=== PATIENT | female | born 1945 | race Caucasian/White ===

== ENCOUNTER 2017-09-03 13:44 | Inpatient (IN) | payer MEDICARE ==
[~2017-09-03] VITALS: Ht 160 cm; Wt 85.0 kg
[2017-09-03 14:06] LABS: BASOPHILS % (AUTO) 0.3 % (0-1); EOSINOPHILS # (AUTO) 0.2 X10'3 (0-0.9); HEMATOCRIT 42.7 % (35.0-45.0); HEMOGLOBIN 14.1 g/dl (12.0-16.0); LYMPHOCYTES # (AUTO) 1.8 X10'3 (1.1-4.8); LYMPHOCYTES % (AUTO) 21.1 % (21-51); MEAN CORPUSCULAR HEMOGLOBIN 29.2 PG (27.0-31.0); MEAN CORPUSCULAR HGB CONC 33.1 % (33.0-36.5); MEAN CORPUSCULAR VOLUME 88.3 FL (78-98); MEAN PLATELET VOLUME 6.9 FL (7.4-10.4); MONOCYTES # (AUTO) 0.6 X10'3 (0-0.9); MONOCYTES % (AUTO) 7.5 % (2-12); NEUTROPHILS # (AUTO) 5.8 X10'3 (1.8-7.7); NEUTROPHILS % (AUTO) 69.1 % (42-75); PLATELET COUNT 315 X10'3 (140-440); RED BLOOD COUNT 4.83 X10'6 (4.20-5.60); RED CELL DISTRIBUTION WIDTH 14.9 % (11.5-14.5); WHITE BLOOD COUNT 8.4 X10'3 (4.5-11.0)
[2017-09-03 14:15] LABS: PARTIAL THROMBOPLASTIN TIME 25 SECONDS (22-32)
[2017-09-03 14:19] LABS: ALANINE AMINOTRANSFERASE 92 U/L (12-78); ALBUMIN 3.8 G/DL (3.4-5.0); ALBUMIN/GLOBULIN RATIO 1.1 (1.1-1.5); ALKALINE PHOSPHATASE 88 IU/L (46-116); ANION GAP 13 (8-16); ASPARTATE AMINO TRANSFERASE 41 U/L (10-37); BILIRUBIN,TOTAL 0.5 MG/DL (0.1-1.0); BLOOD UREA NITROGEN 22 MG/DL (7-18); BUN/CREATININE RATIO 18.2 (6.6-38.0); CALCIUM 9.4 MG/DL (8.5-10.1); CHLORIDE 101 MMOL/L (99-107); CREATININE 1.21 MG/DL (0.40-0.90); GLUCOSE 105 MG/DL (70-104); POTASSIUM 3.1 MMOL/L (3.5-5.1); SODIUM 140 MMOL/L (135-145); TOTAL CARBON DIOXIDE 26.5 MMOL/L (24-32); TOTAL PROTEIN 7.2 G/DL (6.4-8.2); eGFR 44 ML/MIN
[2017-09-03] MEDS ORDERED: aspirin 81mg tab.chew PO ONE (14:35)
[2017-09-03] MEDS ORDERED: enoxaparin 100mg/ml syringe SUBCUT ONE ×2 (14:35→14:45)
[2017-09-03] MEDS ORDERED: nitroGLYCERIN 0.4mg SUBLingual tab SL PRN (14:35)
[2017-09-03] MEDS: potassium 10mEq/100ml NS w/LIDOcaine (10mg/bag) IV SCH ×2 (15:14→16:43)
[2017-09-03] MEDS ORDERED: magnesium Cl slow-release 64mg tablet PO PRN (16:20)
[2017-09-03] MEDS ORDERED: magnesium 4gm in 100ml NS 100 ML IV PRN (16:20)
[2017-09-03] MEDS ORDERED: acetaminophen 325mg tablet PO PRN (16:20)
[2017-09-03] MEDS ORDERED: potassium Cl 20 mEq SR tablet PO PRN (16:20)
[2017-09-03] MEDS ORDERED: mag hydrox/Alum hydrox/simeth 30ml oral suspension PO PRN (16:20)
[2017-09-03] MEDS ORDERED: magnesium hydroxide 30ml (MOM) UD suspension PO PRN (16:20)
[2017-09-03] MEDS ORDERED: HYDROmorphone 1 mg/ml syringe IV PRN (16:20)
[2017-09-03] MEDS ORDERED: magnesium 2GM in 50ml NS 50 ML IV PRN (16:20)
[2017-09-03] MEDS ORDERED: potassium Cl 40MEQ/NS 500ml 500 ML IV PRN ×2 (16:20)
[2017-09-03] MEDS ORDERED: ondansetron/PF 4mg/2ml inj IV PRN (16:20)
[2017-09-03 19:50] VITALS: BP 106/52
[2017-09-03] MEDS ORDERED: enoxaparin 30mg/0.3ml syringe SUBCUT SCH (20:00)
[2017-09-03] MEDS ORDERED: enoxaparin 60mg/0.6ml syringe SUBCUT SCH (20:00)
[2017-09-03] MEDS ORDERED: enoxaparin 100mg/ml syringe SUBCUT SCH (20:00)
[2017-09-03] MEDS: metoprolol tartrate 12.5mg (1/2 tablet) PO SCH (21:38)
[2017-09-03 22:00] VITALS: BP 107/54
[2017-09-03] MEDS ORDERED: heparin 10,000 units/1 ML INJ IV PRN (22:30)
[2017-09-03] MEDS ORDERED: heparin 10,000 units/1 ML INJ IV ONE (22:30)
[2017-09-04] VITALS (12 sets, daily range): BP systolic 105–156; BP diastolic 55–65
[2017-09-04] MEDS ORDERED: glucagon, human recombinant 1mg kit SUBCUT PRN (00:45)
[2017-09-04] MEDS ORDERED: dextrose 50%-water 50ml dispensing syringe IV PRN ×2 (00:45)
[2017-09-04] MEDS ORDERED: MESSAGE TO PHARMACY PO ONE (00:45)
[2017-09-04] MEDS ORDERED: dextrose ORAL solution 15 GM/59 ML bottle PO PRN ×2 (00:45)
[2017-09-04 02:06] LABS: BASOPHILS % (AUTO) 0.4 % (0-1); EOSINOPHILS # (AUTO) 0.1 X10'3 (0-0.9); EOSINOPHILS % (AUTO) 1.6 % (0-6); HEMATOCRIT 36.8 % (35.0-45.0); HEMOGLOBIN 12.2 g/dl (12.0-16.0); LYMPHOCYTES # (AUTO) 1.9 X10'3 (1.1-4.8); LYMPHOCYTES % (AUTO) 25.1 % (21-51); MEAN CORPUSCULAR HEMOGLOBIN 29.1 PG (27.0-31.0); MEAN CORPUSCULAR HGB CONC 33.1 % (33.0-36.5); MEAN CORPUSCULAR VOLUME 87.8 FL (78-98); MONOCYTES # (AUTO) 0.6 X10'3 (0-0.9); MONOCYTES % (AUTO) 7.5 % (2-12); NEUTROPHILS # (AUTO) 4.9 X10'3 (1.8-7.7); NEUTROPHILS % (AUTO) 65.4 % (42-75); PLATELET COUNT 263 X10'3 (140-440); RED BLOOD COUNT 4.19 X10'6 (4.20-5.60); RED CELL DISTRIBUTION WIDTH 14.9 % (11.5-14.5); WHITE BLOOD COUNT 7.4 X10'3 (4.5-11.0)
[2017-09-04 02:23] LABS: ALBUMIN 3.2 G/DL (3.4-5.0); ANION GAP 8 (8-16); BLOOD UREA NITROGEN 22 MG/DL (7-18); BUN/CREATININE RATIO 22.4 (6.6-38.0); CALCIUM 8.9 MG/DL (8.5-10.1); CHLORIDE 106 MMOL/L (99-107); CREATININE 0.98 MG/DL (0.40-0.90); GLUCOSE 93 MG/DL (70-104); MAGNESIUM 1.8 MG/DL (1.5-2.4); POTASSIUM 3.2 MMOL/L (3.5-5.1); SODIUM 140 MMOL/L (135-145); TOTAL CARBON DIOXIDE 26.4 MMOL/L (24-32); eGFR 56 ML/MIN
[2017-09-04 02:27] LABS: HEMOGLOBIN A1C 7.5 % (4.5-6.2)
[2017-09-04] MEDS: potassium Cl 20 mEq SR tablet PO PRN ×4 (05:14→13:16)
[2017-09-04] MEDS: atorvastatin 20mg tablet PO SCH (08:00)
[2017-09-04] MEDS: K and/or MAG REPLACEMENT MC SCH (08:00)
[2017-09-04] MEDS: metoprolol tartrate 12.5mg (1/2 tablet) PO SCH ×2 (08:12→20:30)
[2017-09-04] MEDS ORDERED: aspirin 325mg tablet PO SCH (08:30)
[2017-09-04] MEDS ORDERED: OMEP20CA10 PO (13:04)
[2017-09-04] MEDS ORDERED: CANA300T PO (13:04)
[2017-09-04] MEDS ORDERED: LOSA1TAB36 PO (13:05)
[2017-09-04] MEDS ORDERED: AMLO5TAB4 PO (13:05)
[2017-09-04] MEDS ORDERED: GLYB5TAB7 PO (13:06)
[2017-09-04] MEDS ORDERED: METF500T PO (13:06)
[2017-09-04] MEDS ORDERED: METO25TA6 PO (13:08)
[2017-09-04] MEDS ORDERED: ROSU40TA PO (13:16)
[2017-09-04] MEDS ORDERED: LEVO75TA PO (13:16)
[2017-09-04] MEDS ORDERED: ASPI81TA30 PO (13:17)
[2017-09-04] MEDS ORDERED: normal saline 1000ml 1,000 ML IV SCH ×2 (15:10→21:55)
[2017-09-04] MEDS ORDERED: heparin 1,000unit/ml 10ml vial 10 ML ONE (16:30)
[2017-09-04] MEDS ORDERED: IOHEXOL 350 MG/ML 150 ML injection IV ONE (16:30)
[2017-09-04] MEDS ORDERED: iohexol 350 MG/ML 50ML vial IV ONE (16:30)
[2017-09-04] MEDS ORDERED: LIDOcaine 1%/PF (10mg/ml) 5ml vial ONE (16:30)
[2017-09-04] MEDS ORDERED: midazolam 2 mg/2 ml injection ONE ×2 (17:58→18:10)
[2017-09-04] MEDS ORDERED: fentaNYL/PF 50MCG/1 ML 2ML syringe ONE (18:08)
[2017-09-04] MEDS ORDERED: tirofiban 5mg in NS 100mL 100 ML IV ONE ×2 (18:18→21:06)
[2017-09-04] MEDS ORDERED: clopidogrel 300mg tablet ONE (19:20)
[2017-09-04] MEDS ORDERED: HYDROcodone/acetaminophen 5mg/325mg tablet PO PRN (19:55)
[2017-09-04] MEDS ORDERED: nitroGLYCERIN 0.4mg SUBLingual tab SL PRN (19:55)
[2017-09-04] MEDS ORDERED: OXAZEpam 15mg capsule PO PRN ×2 (19:55→21:45)
[2017-09-04] MEDS ORDERED: proCHLORperazine 10 MG/2 ml inj IV PRN ×2 (19:55→21:45)
[2017-09-04] MEDS: Insulin Detemir pen SQ SCH (21:00)
[2017-09-04] MEDS: tirofiban 5mg in NS 100mL 100 ML IV SCH (21:39)
[2017-09-04] MEDS ORDERED: nitroGLYCERIN-Tridil 50MG/D5W 250 ML IV PRN (21:45)
[2017-09-04] MEDS ORDERED: acetaminophen 325mg tablet PO PRN (21:45)
[2017-09-04] MEDS ORDERED: magnesium hydroxide 30ml (MOM) UD suspension PO PRN (21:45)
[2017-09-04] MEDS: normal saline 1000ml 1,000 ML IV SCH (22:20)
[2017-09-04] MEDS: cyclobenzaprine 10mg tablet PO PRN (23:35)
[2017-09-05] VITALS (24 sets, daily range): BP systolic 93–136; BP diastolic 38–62
[2017-09-05] MEDS: tirofiban 5mg in NS 100mL 100 ML IV SCH (02:30)
[2017-09-05 02:32] LABS: BASOPHILS % (AUTO) 0.2 % (0-1); EOSINOPHILS # (AUTO) 0.1 X10'3 (0-0.9); EOSINOPHILS % (AUTO) 1.6 % (0-6); HEMATOCRIT 35.6 % (35.0-45.0); HEMOGLOBIN 11.5 g/dl (12.0-16.0); LYMPHOCYTES # (AUTO) 1.3 X10'3 (1.1-4.8); MEAN CORPUSCULAR HGB CONC 32.3 % (33.0-36.5); MEAN CORPUSCULAR VOLUME 89.7 FL (78-98); MEAN PLATELET VOLUME 7.6 FL (7.4-10.4); MONOCYTES # (AUTO) 0.3 X10'3 (0-0.9); MONOCYTES % (AUTO) 4.1 % (2-12); NEUTROPHILS # (AUTO) 5.5 X10'3 (1.8-7.7); NEUTROPHILS % (AUTO) 76.1 % (42-75); PLATELET COUNT 258 X10'3 (140-440); RED BLOOD COUNT 3.97 X10'6 (4.20-5.60); RED CELL DISTRIBUTION WIDTH 15.1 % (11.5-14.5); WHITE BLOOD COUNT 7.2 X10'3 (4.5-11.0)
[2017-09-05 02:47] LABS: ALANINE AMINOTRANSFERASE 85 U/L (12-78); ALBUMIN/GLOBULIN RATIO 1.1 (1.1-1.5); ALKALINE PHOSPHATASE 62 IU/L (46-116); ANION GAP 3 (8-16); ASPARTATE AMINO TRANSFERASE 41 U/L (10-37); BILIRUBIN,TOTAL 0.3 MG/DL (0.1-1.0); BLOOD UREA NITROGEN 19 MG/DL (7-18); BUN/CREATININE RATIO 22.6 (6.6-38.0); CALCIUM 8.4 MG/DL (8.5-10.1); CHLORIDE 109 MMOL/L (99-107); CREATININE 0.84 MG/DL (0.40-0.90); GLUCOSE 203 MG/DL (70-104); MAGNESIUM 2.1 MG/DL (1.5-2.4); POTASSIUM 4.3 MMOL/L (3.5-5.1); SODIUM 142 MMOL/L (135-145); TOTAL CARBON DIOXIDE 30.2 MMOL/L (24-32); TOTAL PROTEIN 5.8 G/DL (6.4-8.2); eGFR 67 ML/MIN
[2017-09-05] MEDS: cyclobenzaprine 10mg tablet PO PRN (07:26)
[2017-09-05] MEDS: atorvastatin 20mg tablet PO SCH (07:43)
[2017-09-05] MEDS: levoTHYROXINE 75mcg tablet PO SCH (07:43)
[2017-09-05] MEDS: HYDROchlorothiazide 25mg tablet PO SCH (07:43)
[2017-09-05] MEDS: docusate sod 100mg capsule PO SCH ×2 (07:43→20:09)
[2017-09-05] MEDS: pantoprazole 40mg Tablet.DR PO SCH (07:43)
[2017-09-05] MEDS: aspirin 81mg tab.chew PO SCH (07:49)
[2017-09-05] MEDS: K and/or MAG REPLACEMENT MC SCH (08:00)
[2017-09-05] MEDS ORDERED: glimepiride 1 MG tablet PO SCH (08:00)
[2017-09-05] MEDS: amLODIPine 5mg tablet PO SCH (08:00)
[2017-09-05] MEDS ORDERED: non-formulary drug (Rosuvastatin Calcium* (Crestor*) 1 TAB) PO SCH (08:00)
[2017-09-05] MEDS ORDERED: losartan 50mg tablet PO SCH (08:00)
[2017-09-05] MEDS ORDERED: metoprolol tartrate 25mg tablet PO SCH (08:00)
[2017-09-05] MEDS ORDERED: non-formulary drug (Losartan/Hydrochlorothiazide (Losartan-Hctz 50-12.5 Mg Tab) 1 TAB) PO SCH (08:00)
[2017-09-05] MEDS ORDERED: clopidogrel 75mg tablet PO SCH (08:00)
[2017-09-05] MEDS: metoprolol tartrate 25mg tablet PO SCH (08:00)
[2017-09-05] MEDS: HYDROcodone/acetaminophen 10/325mg tab PO PRN ×2 (08:47→12:43)
[2017-09-05] MEDS: normal saline 1000ml 1,000 ML IV SCH (09:30)
[2017-09-05] MEDS ORDERED: LIDOcaine 1%/PF (10mg/ml) 5ml vial ONE (11:04)
[2017-09-05] MEDS: magnesium hydroxide 30ml (MOM) UD suspension PO SCH (20:10)
[2017-09-05] MEDS: Insulin Detemir pen SQ SCH (21:23)
[2017-09-06] VITALS (18 sets, daily range): BP systolic 105–140; BP diastolic 45–66
[2017-09-06 04:58] LABS: BASOPHILS % (AUTO) 0.3 % (0-1); EOSINOPHILS # (AUTO) 0.3 X10'3 (0-0.9); EOSINOPHILS % (AUTO) 3.2 % (0-6); HEMATOCRIT 35.9 % (35.0-45.0); HEMOGLOBIN 11.8 g/dl (12.0-16.0); LYMPHOCYTES # (AUTO) 1.5 X10'3 (1.1-4.8); LYMPHOCYTES % (AUTO) 17.6 % (21-51); MEAN CORPUSCULAR HEMOGLOBIN 29.3 PG (27.0-31.0); MEAN CORPUSCULAR VOLUME 88.9 FL (78-98); MEAN PLATELET VOLUME 7.1 FL (7.4-10.4); MONOCYTES # (AUTO) 0.5 X10'3 (0-0.9); MONOCYTES % (AUTO) 5.4 % (2-12); NEUTROPHILS # (AUTO) 6.4 X10'3 (1.8-7.7); NEUTROPHILS % (AUTO) 73.5 % (42-75); PLATELET COUNT 231 X10'3 (140-440); RED BLOOD COUNT 4.03 X10'6 (4.20-5.60); RED CELL DISTRIBUTION WIDTH 15.1 % (11.5-14.5); WHITE BLOOD COUNT 8.6 X10'3 (4.5-11.0)
[2017-09-06 05:18] LABS: ANION GAP 9 (8-16); BLOOD UREA NITROGEN 16 MG/DL (7-18); BUN/CREATININE RATIO 19.5 (6.6-38.0); CALCIUM 8.5 MG/DL (8.5-10.1); CHLORIDE 104 MMOL/L (99-107); CREATININE 0.82 MG/DL (0.40-0.90); GLUCOSE 129 MG/DL (70-104); MAGNESIUM 2.4 MG/DL (1.5-2.4); SODIUM 141 MMOL/L (135-145); TOTAL CARBON DIOXIDE 27.8 MMOL/L (24-32); eGFR 69 ML/MIN
[2017-09-06] MEDS: K and/or MAG REPLACEMENT MC SCH (07:00)
[2017-09-06] MEDS: levoTHYROXINE 75mcg tablet PO SCH (07:17)
[2017-09-06] MEDS: pantoprazole 40mg Tablet.DR PO SCH (07:17)
[2017-09-06] MEDS: docusate sod 100mg capsule PO SCH ×2 (08:51→19:03)
[2017-09-06] MEDS: HYDROchlorothiazide 25mg tablet PO SCH (08:51)
[2017-09-06] MEDS: atorvastatin 20mg tablet PO SCH (08:52)
[2017-09-06] MEDS: amLODIPine 5mg tablet PO SCH (08:52)
[2017-09-06] MEDS: metoprolol tartrate 25mg tablet PO SCH (08:52)
[2017-09-06] MEDS: clopidogrel 75mg tablet PO SCH (08:53)
[2017-09-06] MEDS: aspirin 81mg tab.chew PO SCH (08:53)
[2017-09-06] MEDS: insulin Lispro (HumaLOG) vial - multi-dose SQ SCH ×3 (09:30→18:45)
[2017-09-06] MEDS: metFORMIN 500mg tablet PO SCH (17:30)
[2017-09-06] MEDS: magnesium hydroxide 30ml (MOM) UD suspension PO SCH (19:04)
[2017-09-06] MEDS: Insulin Detemir pen SQ SCH (21:14)
[2017-09-07 02:00] VITALS: BP 132/66
[2017-09-07 05:10] VITALS: BP 139/69
[2017-09-07 05:40] LABS: BASOPHILS % (AUTO) 0.3 % (0-1); EOSINOPHILS # (AUTO) 0.3 X10'3 (0-0.9); EOSINOPHILS % (AUTO) 2.9 % (0-6); HEMATOCRIT 38.4 % (35.0-45.0); HEMOGLOBIN 12.7 g/dl (12.0-16.0); LYMPHOCYTES # (AUTO) 2.3 X10'3 (1.1-4.8); LYMPHOCYTES % (AUTO) 26.5 % (21-51); MEAN CORPUSCULAR HEMOGLOBIN 29.3 PG (27.0-31.0); MEAN CORPUSCULAR HGB CONC 33.1 % (33.0-36.5); MEAN CORPUSCULAR VOLUME 88.4 FL (78-98); MEAN PLATELET VOLUME 6.8 FL (7.4-10.4); MONOCYTES # (AUTO) 0.5 X10'3 (0-0.9); MONOCYTES % (AUTO) 5.3 % (2-12); NEUTROPHILS # (AUTO) 5.7 X10'3 (1.8-7.7); PLATELET COUNT 250 X10'3 (140-440); RED BLOOD COUNT 4.34 X10'6 (4.20-5.60); RED CELL DISTRIBUTION WIDTH 14.9 % (11.5-14.5); WHITE BLOOD COUNT 8.7 X10'3 (4.5-11.0)
[2017-09-07 06:27] LABS: ALBUMIN 3.3 G/DL (3.4-5.0); ANION GAP 9 (8-16); BLOOD UREA NITROGEN 18 MG/DL (7-18); BUN/CREATININE RATIO 18.6 (6.6-38.0); CALCIUM 9.6 MG/DL (8.5-10.1); CHLORIDE 105 MMOL/L (99-107); CREATININE 0.97 MG/DL (0.40-0.90); GLUCOSE 126 MG/DL (70-104); MAGNESIUM 2.6 MG/DL (1.5-2.4); POTASSIUM 4.2 MMOL/L (3.5-5.1); SODIUM 143 MMOL/L (135-145); TOTAL CARBON DIOXIDE 29.5 MMOL/L (24-32); eGFR 56 ML/MIN
[2017-09-07 07:10] VITALS: BP 130/66
[2017-09-07] MEDS: K and/or MAG REPLACEMENT MC SCH (08:00)
[2017-09-07] MEDS: atorvastatin 20mg tablet PO SCH (08:00)
[2017-09-07] MEDS: levoTHYROXINE 75mcg tablet PO SCH (08:00)
[2017-09-07] MEDS: metFORMIN 500mg tablet PO SCH (08:01)
[2017-09-07] MEDS: docusate sod 100mg capsule PO SCH (08:01)
[2017-09-07] MEDS: clopidogrel 75mg tablet PO SCH (08:01)
[2017-09-07] MEDS: HYDROchlorothiazide 25mg tablet PO SCH (08:02)
[2017-09-07] MEDS: amLODIPine 5mg tablet PO SCH (08:03)
[2017-09-07] MEDS: metoprolol tartrate 25mg tablet PO SCH (08:03)
[2017-09-07] MEDS: aspirin 81mg tab.chew PO SCH (08:03)
[2017-09-07] MEDS: pantoprazole 40mg Tablet.DR PO SCH (08:03)
[2017-09-07 11:00] VITALS: BP 125/68
[2017-09-07] MEDS ORDERED: CLOP75TA35 PO (13:19)
== END 2017-09-07 14:45 | disposition home or self-care (01) | DRG 246 ==
LOC: ER 13:44 → ED HOLD 16:29 → PCU 3S 20:35 → ICU 2S 09-04 18:44 → PCU 3S 09-06 14:45 → SUR 3N 09-07 05:10
PROVIDERS: ADMIT Internal Medicine; ATTEND Family Medicine
PROC: 027135Z Dilation of Coronary Artery, Two Arteries with Two Drug-eluting Intraluminal Devices, Percutaneous Approach (ICD-10-PCS; principal; 2017-09-04)
PROC: 4A023N7 Measurement of Cardiac Sampling and Pressure, Left Heart, Percutaneous Approach (ICD-10-PCS; 2017-09-04)
PROC: B2111ZZ Fluoroscopy of Multiple Coronary Arteries using Low Osmolar Contrast (ICD-10-PCS; 2017-09-04)
PROC: B2151ZZ Fluoroscopy of Left Heart using Low Osmolar Contrast (ICD-10-PCS; 2017-09-04)
PROC: B41F110 Fluoroscopy of Right Lower Extremity Arteries using Low Osmolar Contrast, Laser Intraoperative (ICD-10-PCS; 2017-09-04)
DX: I21.4 Non-ST elevation (NSTEMI) myocardial infarction (principal); N17.0 Acute kidney failure with tubular necrosis; E11.22 Type 2 diabetes mellitus with diabetic chronic kidney disease; E66.9 Obesity, unspecified; E78.5 Hyperlipidemia, unspecified; I12.9 Hypertensive chronic kidney disease with stage 1 through stage 4 chronic kidney disease, or unspecified chronic kidney disease; I25.119 Atherosclerotic heart disease of native coronary artery with unspecified angina pectoris; N18.9 Chronic kidney disease, unspecified; Z68.33 Body mass index [BMI] 33.0-33.9, adult; Z90.49 Acquired absence of other specified parts of digestive tract; Z90.710 Acquired absence of both cervix and uterus; Z95.5 Presence of coronary angioplasty implant and graft; Z88.5 Allergy status to narcotic agent; Z79.82 Long term (current) use of aspirin; Z79.84 Long term (current) use of oral hypoglycemic drugs; Z79.899 Other long term (current) drug therapy; Z82.49 Family history of ischemic heart disease and other diseases of the circulatory system
CPT/HCPCS: 93306; 93458; 96360; 96372; 99285; C9600; C9601; 36415; 71010; 71045; 80048; 80053; 82948; 83036; 83735; 84484; 85025; 85610; 85730; 87070; 93005; 99152; 99153; A4620; A6213; A6257; A6449; C1725; C1758; C1769; C1874; J1644; J1650; J2001; J2250; J2405; J3010; J3246; J3480; J7030; Q9967

== ENCOUNTER 2017-12-01 02:56 | Outpatient (CLI) | payer MEDICARE ==
[~2017-12-01 02:56] MED LIST: AMLO5TAB4 PO; ASPI81TA30 PO; CANA300T PO; CLOP75TA35 PO; GLYB5TAB7 PO; LEVO75TA PO; LOSA1TAB36 PO; METF500T PO; METO25TA6 PO; OMEP20CA10 PO; ROSU40TA PO
== END 2017-12-01 23:59 | disposition home or self-care (01) ==
LOC: DIABETIC 02:56
PROVIDERS: ATTEND Internal Medicine Interventional Cardiology
DX: E11.9 Type 2 diabetes mellitus without complications (principal); I10 Essential (primary) hypertension; Z87.891 Personal history of nicotine dependence
CPT/HCPCS: G0108

== ENCOUNTER 2018-06-20 13:28 | Inpatient (IN) | payer MEDICARE ==
[~2018-06-20] VITALS: Ht 160 cm; Wt 81.0 kg
[2018-06-20] MEDS ORDERED: aspirin 81mg tab.chew PO ONE (13:50)
[2018-06-20] MEDS ORDERED: nitroGLYCERIN 0.4mg SUBLingual tab SL PRN ×3 (13:50→15:15)
[2018-06-20 13:57] LABS: BASOPHILS % (AUTO) 0.3 % (0-1); EOSINOPHILS # (AUTO) 0.1 X10'3 (0-0.9); EOSINOPHILS % (AUTO) 1.4 % (0-6); HEMATOCRIT 41.2 % (35.0-45.0); HEMOGLOBIN 13.6 g/dl (12.0-16.0); LYMPHOCYTES # (AUTO) 1.8 X10'3 (1.1-4.8); LYMPHOCYTES % (AUTO) 18.5 % (21-51); MEAN CORPUSCULAR HGB CONC 33.1 % (33.0-36.5); MEAN CORPUSCULAR VOLUME 87.8 FL (78-98); MEAN PLATELET VOLUME 7.2 FL (7.4-10.4); MONOCYTES # (AUTO) 0.5 X10'3 (0-0.9); MONOCYTES % (AUTO) 4.8 % (2-12); NEUTROPHILS # (AUTO) 7.1 X10'3 (1.8-7.7); PLATELET COUNT 329 X10'3 (140-440); RED BLOOD COUNT 4.69 X10'6 (4.20-5.60); RED CELL DISTRIBUTION WIDTH 15.2 % (11.5-14.5); WHITE BLOOD COUNT 9.5 X10'3 (4.5-11.0)
[2018-06-20 14:09] LABS: ALANINE AMINOTRANSFERASE 33 U/L (12-78); ALBUMIN 3.7 G/DL (3.4-5.0); ALBUMIN/GLOBULIN RATIO 1.1 (1.1-1.5); ALKALINE PHOSPHATASE 70 IU/L (46-116); ANION GAP 9 (8-16); ASPARTATE AMINO TRANSFERASE 16 U/L (10-37); BILIRUBIN,TOTAL 0.6 MG/DL (0.1-1.0); BLOOD UREA NITROGEN 30 MG/DL (7-18); BUN/CREATININE RATIO 22.4 (6.6-38.0); CALCIUM 9.3 MG/DL (8.5-10.1); CHLORIDE 102 MMOL/L (99-107); CREATININE 1.34 MG/DL (0.40-0.90); GLUCOSE 236 MG/DL (70-104); POTASSIUM 3.8 MMOL/L (3.5-5.1); SODIUM 136 MMOL/L (135-145); TOTAL CARBON DIOXIDE 25.4 MMOL/L (24-32); TOTAL PROTEIN 7.1 G/DL (6.4-8.2); eGFR 39 ML/MIN
[2018-06-20 14:11] LABS: PARTIAL THROMBOPLASTIN TIME 24 SECONDS (22-32)
[2018-06-20 14:31] LABS: COLOR,URINE YELLOW (Yellow); GLUCOSE, URINE >=1000 mg/dl (Neg); KETONES,URINE NEGATIVE (Neg); LEUKOCYTE ESTERASE ,URINE NEGATIVE (Neg); NITRITES, URINE NEGATIVE (Neg); OCCULT BLOOD,URINE TRACE-INTACT (Neg); PROTEIN,URINE TRACE mg/dl (Neg); UROBILINOGEN,URINE 0.2 E.U/dL (0.2-1.0)
[2018-06-20 14:32] LABS: CLARITY,URINE SLIGHTLY CLOUDY (Clear); UA COLLECTION TYPE CLN CATCH MIDSTREAM
[2018-06-20] MEDS ORDERED: DULA0.75 (14:34)
[2018-06-20 14:37] LABS: MUCUS STRANDS NONE SEEN /LPF (Neg); SQUAMOUS EPITHELIAL CELL,UR FEW /LPF (FEW); TRANSITIONAL EPI CELLS,URINE FEW /HPF
[2018-06-20 14:38] LABS: BACTERIA,URINE FEW /HPF (Neg); RBC,URINE 0-2 /HPF (0-2); WBC,URINE 0-4 /HPF (0-4)
[2018-06-20] MEDS ORDERED: potassium Cl 20 mEq SR tablet PO PRN ×2 (15:15)
[2018-06-20] MEDS ORDERED: regadenoson 0.4mg/5ml syringe IV PRN (15:15)
[2018-06-20] MEDS ORDERED: magnesium 4gm in 100ml NS 100 ML IV PRN (15:15)
[2018-06-20] MEDS ORDERED: metoprolol tartrate 1mg/ml inj IV PRN (15:15)
[2018-06-20] MEDS ORDERED: acetaminophen 325mg tablet PO PRN ×2 (15:15)
[2018-06-20] MEDS ORDERED: aminophylline 250mg/10ml inj. IV PRN (15:15)
[2018-06-20] MEDS ORDERED: ondansetron/PF 4mg/2ml inj IV PRN (15:15)
[2018-06-20] MEDS ORDERED: magnesium Cl slow-release 64mg tablet PO PRN (15:15)
[2018-06-20] MEDS ORDERED: magnesium hydroxide 30ml (MOM) UD suspension PO PRN (15:15)
[2018-06-20] MEDS ORDERED: potassium Cl 40MEQ/NS 500ml 500 ML IV PRN ×2 (15:15)
[2018-06-20] MEDS ORDERED: mag hydrox/Alum hydrox/simeth 30ml oral suspension PO PRN (15:15)
[2018-06-20] MEDS ORDERED: magnesium 1gm/100ml D5W IVPB 100 ML IV PRN (15:15)
[2018-06-20] MEDS: normal saline 1000ml 1,000 ML IV SCH (15:39)
[2018-06-20 16:11] LABS: PHOSPHORUS 2.9 MG/DL (2.3-4.5)
[2018-06-20 16:12] LABS: HEMOGLOBIN A1C 7.1 % (4.5-6.2)
[2018-06-20] MEDS ORDERED: dextrose 50%-water 50ml dispensing syringe IV PRN ×2 (17:10)
[2018-06-20] MEDS ORDERED: glucagon, human recombinant 1mg kit SUBCUT PRN (17:10)
[2018-06-20] MEDS ORDERED: MESSAGE TO PHARMACY PO ONE (17:10)
[2018-06-20] MEDS ORDERED: insulin Lispro (HumaLOG) vial - multi-dose SQ SCH (17:10)
[2018-06-20] MEDS ORDERED: dextrose ORAL solution 15 GM/59 ML bottle PO PRN ×2 (17:10)
[2018-06-20 19:00] VITALS: BP 120/59
[2018-06-20 20:19] LABS: % IRON SATURATION 19 % (11-46); IRON 35 UG/DL (49-151); TOTAL IRON BINDING CAPACITY 187 UG/DL (259-388)
[2018-06-20] MEDS ORDERED: insulin glargine (Lantus) pen - multi-dose SQ SCH (21:00)
[2018-06-20] MEDS ORDERED: temazepam 15mg capsule PO PRN (21:00)
[2018-06-20 23:00] VITALS: BP 99/59
[2018-06-21] VITALS (10 sets, daily range): BP systolic 106–135; BP diastolic 47–70
[2018-06-21] MEDS: normal saline 1000ml 1,000 ML IV SCH ×2 (01:45→11:20)
[2018-06-21 02:47] LABS: HEMATOCRIT 39.9 % (35.0-45.0); HEMOGLOBIN 13.5 g/dl (12.0-16.0); MEAN CORPUSCULAR HGB CONC 33.9 % (33.0-36.5); MEAN CORPUSCULAR VOLUME 88.5 FL (78-98); MEAN PLATELET VOLUME 8.7 FL (7.4-10.4); PLATELET COUNT 201 X10'3 (140-440); RED BLOOD COUNT 4.51 X10'6 (4.20-5.60); RED CELL DISTRIBUTION WIDTH 15.9 % (11.5-14.5); WHITE BLOOD COUNT 5.2 X10'3 (4.5-11.0)
[2018-06-21 03:06] LABS: ALBUMIN 3.1 G/DL (3.4-5.0); ANION GAP 10 (8-16); BLOOD UREA NITROGEN 30 MG/DL (7-18); BUN/CREATININE RATIO 26.1 (6.6-38.0); CALCIUM 8.7 MG/DL (8.5-10.1); CHLORIDE 105 MMOL/L (99-107); CHOL/HDL RATIO 3.5 (0.00-4.99); CHOLESTEROL 119 MG/DL (0-200); CREATININE 1.15 MG/DL (0.40-0.90); GLUCOSE 126 MG/DL (70-104); HDL CHOLESTEROL 34 MG/DL (35-60); LDL CHOLESTEROL 62 MG/DL (50-100); MAGNESIUM 2.1 MG/DL (1.5-2.4); POTASSIUM 3.7 MMOL/L (3.5-5.1); SODIUM 139 MMOL/L (135-145); TOTAL CARBON DIOXIDE 24.2 MMOL/L (24-32); TRIGLYCERIDES 177 MG/DL (20-135); eGFR 46 ML/MIN
[2018-06-21] MEDS ORDERED: pantoprazole 40mg Tablet.DR PO SCH (07:30)
[2018-06-21] MEDS ORDERED: atorvastatin 20mg tablet PO SCH (08:00)
[2018-06-21] MEDS ORDERED: losartan 50mg tablet PO SCH (08:00)
[2018-06-21] MEDS ORDERED: INVOKANA 300 MG PO SCH (08:00)
[2018-06-21] MEDS ORDERED: CANAGLIFLOZIN PO SCH (08:00)
[2018-06-21] MEDS ORDERED: non-formulary drug (Losartan/Hydrochlorothiazide (Losartan-Hctz 50-12.5 Mg Tab) 1 TAB) PO SCH (08:00)
[2018-06-21] MEDS ORDERED: non-formulary drug (Omeprazole 1 CAP) PO SCH (08:00)
[2018-06-21] MEDS ORDERED: HYDROchlorothiazide 12.5mg capsule PO SCH (08:00)
[2018-06-21] MEDS ORDERED: levoTHYROXINE 75mcg tablet PO SCH (08:00)
[2018-06-21] MEDS ORDERED: metoprolol tartrate 25mg tablet PO SCH (08:00)
[2018-06-21] MEDS ORDERED: enoxaparin 40mg/0.4ml syringe SQ SCH (08:00)
[2018-06-21] MEDS ORDERED: clopidogrel 75mg tablet PO SCH (08:00)
[2018-06-21] MEDS ORDERED: non-formulary drug (Rosuvastatin Calcium* (Crestor*) 1 TAB) PO SCH (08:00)
[2018-06-21] MEDS ORDERED: K and/or MAG REPLACEMENT MC SCH (08:00)
[2018-06-21] MEDS ORDERED: aspirin 81mg tab.chew PO SCH (08:30)
[2018-06-21] MEDS ORDERED: aspirin 325mg tablet PO SCH (08:30)
[2018-06-21] MEDS ORDERED: regadenoson 0.4mg/5ml syringe IV ONE (10:12)
[2018-06-21] MEDS ORDERED: aminophylline inj. 0 ML IV ONE (10:12)
== END 2018-06-21 14:10 | disposition home or self-care (01) | DRG 303 ==
LOC: ER 13:29 → ED HOLD 15:12 → EDBEDREQ 15:33 → PCU 3S 16:20
PROVIDERS: ADMIT Family Medicine; ATTEND Family Medicine
PROC: 3E033HZ Introduction of Radioactive Substance into Peripheral Vein, Percutaneous Approach (ICD-10-PCS; principal; 2018-06-21)
PROC: 4A02XM4 Measurement of Cardiac Total Activity, External Approach (ICD-10-PCS; 2018-06-21)
DX: I25.110 Atherosclerotic heart disease of native coronary artery with unstable angina pectoris (principal); E03.9 Hypothyroidism, unspecified; E78.5 Hyperlipidemia, unspecified; I50.9 Heart failure, unspecified; E11.65 Type 2 diabetes mellitus with hyperglycemia; R32 Unspecified urinary incontinence; I11.0 Hypertensive heart disease with heart failure; N28.9 Disorder of kidney and ureter, unspecified; Z60.2 Problems related to living alone; Z90.710 Acquired absence of both cervix and uterus; Z95.5 Presence of coronary angioplasty implant and graft; Z98.51 Tubal ligation status; Z90.49 Acquired absence of other specified parts of digestive tract; Z88.5 Allergy status to narcotic agent; Z79.899 Other long term (current) drug therapy; Z79.82 Long term (current) use of aspirin; Z79.84 Long term (current) use of oral hypoglycemic drugs; Z87.19 Personal history of other diseases of the digestive system
CPT/HCPCS: 36415; 71045; 78452; 80048; 80053; 80061; 81001; 82607; 82948; 83036; 83540; 83550; 83735; 83880; 84100; 84443; 84484; 85025; 85027; 85610; 85730; 87070; 93005; 93017; 93306; 99285; A9500; J0280; J1650; J1815; J7030

== ENCOUNTER 2018-12-14 14:21 | Day surgery (SDC) | payer MEDICARE ==
[2018-12-12 10:38] LABS: BASOPHILS % (AUTO) 0.3 % (0-1); EOSINOPHILS # (AUTO) 0.1 X10'3 (0-0.9); HEMOGLOBIN 12.7 g/dl (12.0-16.0); LYMPHOCYTES # (AUTO) 1.7 X10'3 (1.1-4.8); LYMPHOCYTES % (AUTO) 21.1 % (21-51); MEAN CORPUSCULAR HGB CONC 33.6 g/dL (33.0-36.5); MEAN CORPUSCULAR VOLUME 86.4 FL (78-98); MEAN PLATELET VOLUME 7.7 FL (7.4-10.4); MONOCYTES # (AUTO) 0.5 X10'3 (0-0.9); MONOCYTES % (AUTO) 6.1 % (2-12); NEUTROPHILS # (AUTO) 5.9 X10'3 (1.8-7.7); NEUTROPHILS % (AUTO) 71.5 % (42-75); PLATELET COUNT 281 X10'3 (140-440); RED BLOOD COUNT 4.39 X10'6 (4.20-5.60); RED CELL DISTRIBUTION WIDTH 15.9 % (11.5-14.5); WHITE BLOOD COUNT 8.2 X10'3 (4.5-11.0)
[2018-12-12 10:49] LABS: ALBUMIN 3.6 G/DL (3.4-5.0); ANION GAP 8 (8-16); BLOOD UREA NITROGEN 19 MG/DL (7-18); CALCIUM 9.9 MG/DL (8.5-10.1); CHLORIDE 102 MMOL/L (99-107); GLUCOSE 158 MG/DL (70-104); POTASSIUM 3.7 MMOL/L (3.5-5.1); SODIUM 137 MMOL/L (135-145); TOTAL CARBON DIOXIDE 27.3 MMOL/L (24-32); eGFR 54 ML/MIN
[2018-12-12 10:52] LABS: PARTIAL THROMBOPLASTIN TIME 26 SECONDS (22-32)
[~2018-12-14] VITALS: Ht 160 cm; Wt 83.4 kg
[2018-12-14] VITALS (11 sets, daily range): BP systolic 105–124; BP diastolic 56–75
[~2018-12-14 14:21] MED LIST changes: -AMLO5TAB4 PO; +DULA0.75
[2018-12-14] MEDS ORDERED: diphenhydrAMINE 25mg capsule PO PRN (14:45)
[2018-12-14] MEDS ORDERED: normal saline 1,000 ML IV SCH (14:45)
[2018-12-14] MEDS ORDERED: LORazepam 0.5 MG tablet PO PRN (14:45)
[2018-12-14] MEDS ORDERED: PANT20TA3 PO (15:42)
[2018-12-14] MEDS ORDERED: NAS0.025NS NS (15:42)
[2018-12-14] MEDS ORDERED: METF-438 PO (15:42)
[2018-12-14] MEDS ORDERED: MULT-1180 PO (15:42)
[2018-12-14] MEDS ORDERED: B12 IM (15:42)
[2018-12-14] MEDS ORDERED: DULA1.5P SQ (15:42)
[2018-12-14] MEDS ORDERED: GLIM4TAB79 PO (15:42)
[2018-12-14] MEDS ORDERED: LIDOcaine 1% (10mg/ml)w/preservative injection 20ml MDV ONE (16:22)
[2018-12-14] MEDS ORDERED: iohexol 350MG/ML 100ml bottle IV ONE (16:22)
[2018-12-14] MEDS ORDERED: dextrose ORAL solution 15 GM/59 ML bottle PO PRN ×2 (16:30)
[2018-12-14] MEDS ORDERED: glucagon, human recombinant 1mg kit SUBCUT PRN (16:30)
[2018-12-14] MEDS ORDERED: dextrose 50%-water 50ml dispensing syringe IV PRN ×2 (16:30)
[2018-12-14] MEDS ORDERED: midazolam 2 mg/2 ml injection ONE (17:26)
[2018-12-14] MEDS ORDERED: fentaNYL/PF 50MCG/1 ML 2ML syringe ONE (17:27)
[2018-12-14] MEDS ORDERED: HYDROcodone/acetaminophen 10/325mg tab PO PRN (18:20)
[2018-12-14] MEDS ORDERED: ondansetron/PF 4mg/2ml inj IV PRN (18:20)
[2018-12-14] MEDS ORDERED: HYDROcodone/acetaminophen 5mg/325mg tablet PO PRN (18:20)
[2018-12-14] MEDS ORDERED: proCHLORperazine 10 MG/2 ml inj IV PRN (18:20)
[2018-12-14] MEDS ORDERED: OXAZEpam 15mg capsule PO PRN (18:20)
== END 2018-12-14 21:05 | disposition home or self-care (01) ==
LOC: SSTAY O 14:21
PROVIDERS: ATTEND Internal Medicine Interventional Cardiology
DX: I25.118 Atherosclerotic heart disease of native coronary artery with other forms of angina pectoris (principal); E78.5 Hyperlipidemia, unspecified; E11.22 Type 2 diabetes mellitus with diabetic chronic kidney disease; I12.9 Hypertensive chronic kidney disease with stage 1 through stage 4 chronic kidney disease, or unspecified chronic kidney disease; N18.9 Chronic kidney disease, unspecified; Z95.1 Presence of aortocoronary bypass graft; Z87.891 Personal history of nicotine dependence; Z88.6 Allergy status to analgesic agent; Z88.8 Allergy status to other drugs, medicaments and biological substances; Z79.82 Long term (current) use of aspirin; Z79.899 Other long term (current) drug therapy
CPT/HCPCS: 36415; 80048; 82948; 85025; 85610; 85730; 93005; 93458; 99152; A6257; J1644; J2001; J2250; J3010; J7030; Q0163; Q9967; 99153; A4620; C1760; C1769